=== PATIENT | male | born 1985 | race Caucasian/White ===

== ENCOUNTER 2017-12-28 13:25 | Emergency (ER) | payer SELFPAY ==
--- NOTE | 2017-12-28 15:08 | XRay Report ---
ROUTINE CHEST, TWO VIEWS: HISTORY: Shortness of breath. No comparison. The right hemidiaphragm is elevated by 2 rib levels compared to the left side. There is minor linear scarring or atelectasis in the right perihilar region. Otherwise, the lungs are clear. No pleural effusion or pneumothorax. Heart and mediastinal structures are within normal limits. The bony thorax is intact IMPRESSION: Mild elevation of the right hemidiaphragm. Correlate for right phrenic nerve paralysis. Minor scarring or linear atelectasis in the right perihilar region.
[2017-12-28 15:27] LABS: Basophils # (Auto) 0.1 K/mm3 (0.0-0.1); Basophils % (Auto) 0.5 % (0.0-1.8); Eosinophils % (Auto) 0.2 % (0.0-4.3); Hematocrit 46.5 % (35.5-45.6); Hemoglobin 15.6 gm/dl (11.8-15.2); Lymphocytes # (Auto) 1.5 K/mm3 (1.2-5.4); Lymphocytes % (Auto) 11.2 % (13.4-35.0); Mean Corpuscular HGB Conc 34 % (32-34); Mean Corpuscular Hemoglobin 28 pg (28-32); Mean Corpuscular Volume 83 fl (84-94); Monocytes # (Auto) 1.4 K/mm3 (0.0-0.8); Monocytes % (Auto) 10.1 % (0.0-7.3); Platelet Count 435 K/mm3 (140-440)
[2017-12-28 15:44] LABS: BUN/Creatinine Ratio 14; Blood Urea Nitrogen 11 mg/dL (9-20); Hemolysis Index 6
[2017-12-29] MEDS ORDERED: TORADOL IM ONE (02:58)
[2017-12-29] MEDS ORDERED: TYLENOL PO ONE (03:01)
--- NOTE | 2017-12-29 03:02 | Emergency Department Report ---
ED Shortness of Breath HPI - General Chief Complaint: Dyspnea/Respdistress Stated Complaint: CHEST TIGHTNESS, PAIN ON INSPIRATION Time Seen by Provider: 12/29/17 02:53 Source: patient Mode of arrival: Ambulatory Limitations: No Limitations - History of Present Illness Initial Comments: Patient is 32 years old male with no significant past medical history presented to the ER with fever cough right lower chest pain for the last 2 days. Patient stated that his symptoms started with congestion and runny nose. Patient denied any nausea or vomiting or diarrhea. He stated that his pain increases when he takes a deep breath. MD Complaint: shortness of breath, cough, chest pain, pain with inspiration -: days(s) Quality: sharp Consistency: constant Worsens With: inspiration Context: recent URI - Related Data Previous Rx's Medication Instructions Recorded Last Taken Type Azithromycin [Zithromax Z-COLT] 250 mg PO DAILY 1 Days tab 12/29/17 Unknown Rx Naproxen [Naprosyn] 500 mg PO BID #14 tablet 12/29/17 Unknown Rx guaiFENesin/CODEINE [Robitussin AC] 10 ml PO TID PRN #100 ml 12/29/17 Unknown Rx Allergies Allergy/AdvReac Type Severity Reaction Status Date / Time No Known Allergies Allergy Unverified 12/28/17 14:02 ED Review of Systems ROS: Stated complaint: CHEST TIGHTNESS, PAIN ON INSPIRATION Other details as noted in HPI Comment: All other systems reviewed and negative Constitutional: chills, fever ENT: congestion. denies: throat pain Respiratory: cough, shortness of breath. denies: SOB with exertion, SOB at rest Cardiovascular: chest pain, palpitations Gastrointestinal: denies: abdominal pain, nausea, vomiting, diarrhea, constipation, hematemesis, melena, hematochezia Genitourinary: denies: urgency, dysuria, frequency, hematuria Neurological: denies: headache, weakness, numbness, paresthesias ED Past Medical Hx - Past Medical History Previous Medical History?: No - Surgical History Past Surgical History?: No - Social History Smoking Status: Former Smoker Substance Use Type: Non Opiate Pain - Medications Home Medications: Home Medications Medication Instructions Recorded Confirmed Last Taken Type Azithromycin [Zithromax Z-COLT] 250 mg PO DAILY 1 Days tab 12/29/17 Unknown Rx Naproxen [Naprosyn] 500 mg PO BID #14 tablet 12/29/17 Unknown Rx guaiFENesin/CODEINE [Robitussin AC] 10 ml PO TID PRN #100 ml 12/29/17 Unknown Rx ED Physical Exam - General Limitations: No Limitations General appearance: alert, in no apparent distress - Head Head exam: Present: atraumatic, normocephalic, normal inspection - Eye Eye exam: Present: normal appearance, PERRL - ENT ENT exam: Present: normal exam, normal orophraynx, mucous membranes moist - Neck Neck exam: Present: normal inspection, full ROM. Absent: tenderness, meningismus, lymphadenopathy, thyromegaly - Respiratory Respiratory exam: Present: normal lung sounds bilaterally, chest wall tenderness. Absent: respiratory distress, wheezes, rales, rhonchi, stridor, accessory muscle use, decreased breath sounds, prolonged expiratory - Cardiovascular Cardiovascular Exam: Present: regular rate, normal rhythm, normal heart sounds - GI/Abdominal GI/Abdominal exam: Present: soft, normal bowel sounds. Absent: distended, tenderness, guarding, rebound, rigid, organomegaly, mass, bruit, pulsatile mass , hernia - Extremities Exam Extremities exam: Present: normal inspection, full ROM, normal capillary refill. Absent: tenderness, pedal edema, calf tenderness - Back Exam Back exam: Present: normal inspection, full ROM. Absent: CVA tenderness (R), CVA tenderness (L), muscle spasm - Neurological Exam Neurological exam: Present: alert, oriented X3, CN II-XII intact, normal gait - Skin Skin exam: Present: warm, intact, normal color. Absent: cyanosis, diaphoretic ED Course Vital Signs 12/28/17 12/29/17 14:02 02:56 Temperature 102.3 F H 100 F H Pulse Rate 108 H 95 H Respiratory 20 18 Rate Blood Pressure 135/82 Blood Pressure 140/82 [Left] O2 Sat by Pulse 98 100 Oximetry - Reevaluation(s) Reevaluation #1: 12/29/17 04:42 Patient stated that he is feeling much better. ED Medical Decision Making - Lab Data Result diagrams: 12/28/17 15:08 12/28/17 15:08 - EKG Data -: EKG Interpreted by Tn EKG shows normal: sinus rhythm Rate: tachycardia - EKG Data Interpretation: no acute changes - Radiology Data Radiology results: report reviewed Referring Physician: ED DOC Patient Name: GUICHO SAENZ Date of : 1985 Sex: Male Report Date: 2017-12-28 Report Status: Finalized Findings [facility] [address] [place] [address] XRay Report Signed Patient: GUICHO SAENZ MR#: [id number] : 1985 Acct:[id number] Age/Sex: 32 / M ADM Date: 12/28/17 Loc: ED Attending Dr: Ordering Physician: ERNESTO ANAYA MD Date of Service: 12/28/17 Procedure(s): XR chest routine 2V Accession Number(s): [id number] cc: ERNESTO ANAYA MD Fluoro Time In Minutes: ROUTINE CHEST, TWO VIEWS: HISTORY: Shortness of breath. No comparison. The right hemidiaphragm is elevated by 2 rib levels compared to the left side. There is minor linear scarring or atelectasis in the right perihilar region. Otherwise, the lungs are clear. No pleural effusion or pneumothorax. Heart and mediastinal structures are within normal limits. The bony thorax is intact IMPRESSION: Mild elevation of the right hemidiaphragm. Correlate for right phrenic nerve paralysis. Minor scarring or linear atelectasis in the right perihilar region. Transcribed By: TTR Dictated By: ALEKSANDRA SLOAN JR, MD Electronically Authenticated By: ALEKSANDRA SLOAN JR, MD Signed Date/Time: 12/28/17 1502 DD/ 1500 TD/TT: 12/28/17 1502 Critical care attestation.: If time is entered above; I have spent that time in minutes in the direct care of this critically ill patient, excluding procedure time. ED Disposition Clinical Impression: Acute bronchitis, Costochondritis, acute Disposition: DC-01 TO HOME OR SELFCARE Is pt being admited?: No Condition: Stable Instructions: Costochondritis (ED), Acute Bronchitis (ED) Prescriptions: Azithromycin [Zithromax Z-COLT] 250 mg PO DAILY 1 Days tab guaiFENesin/CODEINE [Robitussin AC] 10 ml PO TID PRN #100 ml PRN Reason: Cough Naproxen [Naprosyn] 500 mg PO BID #14 tablet Referrals: PRIMARY CARE, [Primary Care Provider] - 3-5 Days
[2017-12-29 03:05] VITALS: BP 140/82
== END 2017-12-29 05:04 | disposition home or self-care (01) ==
LOC: ED 13:25
DX: J20.9 Acute bronchitis, unspecified (principal); M94.0 Chondrocostal junction syndrome [Tietze]; Z87.891 Personal history of nicotine dependence
CPT/HCPCS: 36415; 71046; 80048; 85025; 87040; 87400; 93005; 93010; 96372; 99284; J1885